=== PATIENT | male | born 1980 | race Caucasian/White ===

== ENCOUNTER 2018-06-30 21:50 | Emergency (ER) | payer BC ==
[~2018-06-30] VITALS: Ht 188 cm; Wt 76.2 kg
[2018-06-30 22:00] VITALS: BP 114/80
[2018-06-30] MEDS ORDERED: PROPECIA1 MG PO (22:00)
[2018-06-30] MEDS ORDERED: DUPIXENT200 MG/1.1 SQ (22:00)
--- NOTE | 2018-06-30 22:40 | Diagnostic Imaging Report ---
EXAM: XR Chest, 1 View CLINICAL HISTORY: SYNCOPE TECHNIQUE: Frontal view of the chest. COMPARISON: No relevant prior studies available. FINDINGS: Lungs: No consolidation. Pleural space: Unremarkable. No pneumothorax. Heart: Unremarkable. No cardiomegaly. Mediastinum: Unremarkable. Bones/joints: No acute fracture. IMPRESSION: No acute cardiopulmonary disease.
[2018-06-30 22:50] LABS: BASOPHILS % (AUTO) 1.1 % (0.0-2.0); EOSINOPHILS % (AUTO) 1.9 % (0.0-3.0); HEMATOCRIT 42.4 % (42.0-52.0); HEMOGLOBIN 14.8 G/DL (14.2-18.0); LYMPHOCYTES % (AUTO) 34.7 % (20.0-45.0); MEAN CORPUSCULAR VOLUME 85 FL (80-99); MONOCYTES % (AUTO) 5.1 % (1.0-10.0); NEUTROPHILS % (AUTO) 57.3 % (45.0-75.0); PLATELET COUNT 202 K/UL (150-450); RED CELL DISTRIBUTION WIDTH 10.5 % (11.6-14.8); WHITE BLOOD COUNT 6.3 K/UL (4.8-10.8)
[2018-06-30 22:54] LABS: ANION GAP 12 mmol/L (5-15); BLOOD UREA NITROGEN 16 mg/dL (7-18); CALCIUM 8.3 MG/DL (8.5-10.1); CARBON DIOXIDE 25 MMOL/L (21-32); CHLORIDE 104 MMOL/L (98-107); CREATININE 1.2 MG/DL (0.55-1.30); POTASSIUM 3.5 MMOL/L (3.5-5.1); SODIUM 140 MMOL/L (136-145)
[2018-06-30 23:02] LABS: ALANINE AMINOTRANSFERASE 24 U/L (12-78); ALBUMIN/GLOBULIN RATIO 1.2 (1.0-2.7); ALKALINE PHOSPHATASE 40 U/L (46-116); ASPARTATE AMINO TRANSFERASE 19 U/L (15-37); BILIRUBIN,TOTAL 0.6 MG/DL (0.2-1.0); CREATINE KINASE 113 U/L (26-308)
[2018-07-01] VITALS: BP 122/83
--- NOTE | 2018-07-01 00:18 | Emergency Room Report ---
History of Present Illness General Chief Complaint: Syncope Source: Patient, Significant Other, EMS Present Illness HPI Patient presents after having two syncopal episodes. He was at the [employer] , had been drinking couple of beers. He also smoked a joint before. He felt strange feeling in his stomach and started getting anxious. He thought standing up would help. After he stood up he passed out. He regained consciousness, they sat him up, and he passed out again. No seizure activity but had a couple of jerks when passed out again. Paramedics found with hypotension. NS 250 administered with improved BP. states he was pale. He denies vomiting. No melena - normal BMs. No abdominal pain. Since the episode, he feels tired. Allegedly he hit his head initially, but denies pain there. No neck pain. He feels thirsty now. Denies diabetes. Glucose in field was normal. EKG also normal in field. No chest pain, palpitations, fevers, calf pain, edema, headache, rashes, joint pain, URI sy, cough, dyspnea (except when he felt anxious). The patient has passed out a couple times before. Once when he injured his hand. He's been evaluated in the past. Allergies: Coded Allergies: No Known Allergies (Unverified , 06/30/18) Patient History Past Medical History: see triage record Social History: Reports: alcohol use, drug use - THC; Denies: smoking Social History Narrative with Reviewed Nursing Documentation: PMH: Agreed; PSxH: Agreed Review of Systems All Other Systems: negative except mentioned in HPI Physical Exam Vital Signs Date Time Temp Pulse Resp B/P (MAP) Pulse Ox O2 Delivery O2 Flow Rate FiO2 06/30/18 21:55 97.9 90 16 114/80 99 Room Air Sp02 EP Interpretation: reviewed, normal General Appearance: well appearing, no apparent distress, GCS 15 Head: normocephalic Eyes: bilateral eye normal inspection, bilateral eye PERRL, bilateral eye EOMI ENT: moist mucus membranes - but thirsty Neck: full range of motion, supple, no bony tend Respiratory: lungs clear, normal breath sounds Cardiovascular #1: regular rate, rhythm, no gallop Cardiovascular #2: 2+ radial (R) Gastrointestinal: normal inspection, normal bowel sounds, non tender, no mass, non-distended, scaphoid Musculoskeletal: back normal, normal range of motion, no calf tenderness Neurologic: alert, oriented x3, mainframe architect III-XII nml as tested, motor strength/tone normal, DTRs symmetric, sensory intact, cerebellar normal, speech normal Psychiatric: anxious Skin: normal inspection, warm/dry Medical Decision Making Diagnostic Impression: Primary Impression: Syncope Qualified Codes: R55 - Syncope and collapse Additional Impression: Transient hypotension ER Course Patient presents after 2 syncopal episodes and hypotension the field. Differential includes acute myocardial infarction, pulmonary embolus, vasovagal , GI bleed, occult infection, dehydration, adverse reaction to THC/alcohol amongst others. His blood pressure is better after receiving a bolus in the field. Evaluation will be with EKG, chest x-ray and labs. The patient will treated with IV hydration here. Based on his physical exam CT of the head is not indicated at this time. In addition to that there is no evidence of seizure activity. The patient was symptomatic prior to passing out. Based on VS and exam, PE less likely. EKG with normal sinus rhythm and possible left atrial enlargement otherwise normal. Chest x-ray no infiltrate, normal heart size. Labs significant for + THC and alcohol. Normal WBC, H/H and CMP. (Glucose slightly elevated, but might be response to event.) Patient improved with IV hydration. Orthostatics performed. The patient feels strong when he stands at this time is no longer dizzy. Discussed precautions for syncope prevention. Also discussed the need for prompt follow-up. Patient stable for outpatient observation and treatment. Laboratory Tests Test 06/30/18 22:24 06/30/18 23:21 White Blood Count 6.3 K/UL (4.8-10.8) Red Blood Count 5.00 M/UL (4.70-6.10) Hemoglobin 14.8 G/DL (14.2-18.0) Hematocrit 42.4 % (42.0-52.0) Mean Corpuscular Volume 85 FL (80-99) Mean Corpuscular Hemoglobin 29.7 PG (27.0-31.0) Mean Corpuscular Hemoglobin Concent 35.0 G/DL (32.0-36.0) Red Cell Distribution Width 10.5 % (11.6-14.8) L Platelet Count 202 K/UL (150-450) Mean Platelet Volume 8.1 FL (6.5-10.1) Neutrophils (%) (Auto) 57.3 % (45.0-75.0) Lymphocytes (%) (Auto) 34.7 % (20.0-45.0) Monocytes (%) (Auto) 5.1 % (1.0-10.0) Eosinophils (%) (Auto) 1.9 % (0.0-3.0) Basophils (%) (Auto) 1.1 % (0.0-2.0) Sodium Level 140 MMOL/L (136-145) Potassium Level 3.5 MMOL/L (3.5-5.1) Chloride Level 104 MMOL/L (98-107) Carbon Dioxide Level 25 MMOL/L (21-32) Anion Gap 12 mmol/L (5-15) Blood Urea Nitrogen 16 mg/dL (7-18) Creatinine 1.2 MG/DL (0.55-1.30) Estimate Glomerular Filtration Rate > 60 mL/min (>60) Glucose Level 165 MG/DL (74-106) H Calcium Level 8.3 MG/DL (8.5-10.1) L Total Bilirubin 0.6 MG/DL (0.2-1.0) Aspartate Amino Transferase (AST) 19 U/L (15-37) Alanine Aminotransferase (ALT) 24 U/L (12-78) Alkaline Phosphatase 40 U/L (46-116) L Total Creatine Kinase 113 U/L (26-308) Troponin I 0.000 ng/mL (0.000-0.056) Pro-B-Type Natriuretic Peptide 45 pg/mL (0-125) Total Protein 7.3 G/DL (6.4-8.2) Albumin 4.0 G/DL (3.4-5.0) Globulin 3.3 g/dL Albumin/Globulin Ratio 1.2 (1.0-2.7) Serum Alcohol 13 mg/dL Urine Opiates Screen Negative (NEGATIVE) Urine Barbiturates Screen Negative (NEGATIVE) Phencyclidine (PCP) Screen Negative (NEGATIVE) Urine Amphetamines Screen Negative (NEGATIVE) Urine Benzodiazepines Screen Negative (NEGATIVE) Urine Cocaine Screen Negative (NEGATIVE) Urine Marijuana (THC) Screen Positive (NEGATIVE) H EKG Diagnostic Results Rate: normal Rhythm: NSR ST Segments: no acute changes - poss LAE Rhythm Strip Diag. Results EP Interpretation: yes Rhythm: NSR, no PVC's, no ectopy Chest X-Ray Diagnostic Results Chest X-Ray Diagnostic Results : Chest X-Ray Ordered: Yes # of Views/Limited/Complete: 1 View Indication: Other EP Interpretation: Yes Interpretation: no consolidation, no effusion, no pneumothorax, other - scoleosis Impression: No acute disease Electronically Signed by: Electronically signed by Darryn Paul MD Last Vital Signs Date Time Temp Pulse Resp B/P (MAP) Pulse Ox O2 Delivery O2 Flow Rate FiO2 07/01/18 06:08 97.9 71 16 118/86 99 Room Air Status: improved Disposition: HOME, SELF-CARE Condition: Improved Darryn Paul MD Jul 01, 2018 00:18
[2018-07-01 00:52] VITALS: BP 118/86
[2018-07-01 06:08] VITALS: BP 118/86
== END 2018-07-01 00:52 | disposition home or self-care (01) ==
LOC: EDBD 21:50 → EMR 22:09
DX: R55 Syncope and collapse (principal); I95.9 Hypotension, unspecified
CPT/HCPCS: 36415; 71045; 80053; 80307; 82550; 83880; 84484; 85025; 93005; 96360; 96361; 99284; G0480; 80329